=== PATIENT | male | born 1995 | race Caucasian/White ===

== ENCOUNTER → 2016-08-07 | Outpatient (CLI) | payer BC, OTHER | END | disposition home or self-care (01) | LOC: CFH 12:04 | PROVIDERS: ATTEND Nurse Practitioner Family | DX: M48.07 Spinal stenosis, lumbosacral region (principal) | CPT/HCPCS: 72114 ==

== ENCOUNTER → 2016-08-11 | Outpatient (CLI) | payer BC, OTHER | END | disposition home or self-care (01) | LOC: CFH 12:17 | PROVIDERS: ATTEND Nurse Practitioner Family | DX: R22.1 Localized swelling, mass and lump, neck (principal) | CPT/HCPCS: 76536 ==

== ENCOUNTER → 2018-06-21 | Outpatient (CLI) | payer OTHER | END | disposition home or self-care (01) | LOC: CVU 06:52 | PROVIDERS: ATTEND Internal Medicine Cardiovascular Disease | DX: I10 Essential (primary) hypertension (principal); I70.1 Atherosclerosis of renal artery | CPT/HCPCS: 93306; 93975 ==